=== PATIENT | female | born 1985 | race Caucasian/White ===

== ENCOUNTER 2019-05-17 07:37 | Day surgery (SDC) | payer OTHER ==
[~2019-05-17] VITALS: Ht 172.7 cm; Wt 108.9 kg
[2019-05-17] VITALS (8 sets, daily range): BP systolic 98–125; BP diastolic 55–88
[~2019-05-17 07:37] MED LIST: LR 1000ml 1,000 ML IV SCH
[2019-05-17] MEDS ORDERED: Midazolam 2mg/2ml Inj ONE (07:38)
[2019-05-17] MEDS ORDERED: fentaNYL 100 mcg/2 mL IV ONE (07:38)
--- NOTE | 2019-05-17 07:49 | Short Stay Surgery H&P ---
History of Present Illness History of Present Illness Chief Complaint Abdominal pains, GERDs, nausea HPI Staci Crockett is a 34 year old female who was admitted on for Gastro Reflux /abdominal pains/nausea Patient History Allergies: Coded Allergies: No Known Allergies (Unverified , 05/16/19) PAST MEDICAL HISTORY: (1) Diverticulosis (2) Asthma Review of Systems Cardiovascular: Reports: no symptoms Respiratory: Reports: asthma Skeletal: Reports: trauma Gastrointestinal: Reports: gastro esophageal reflux disease Genitourinary: Reports: no symptoms Neurologic: Reports: no symptoms Endocrine: Reports: no symptoms Hematologic: Reports: no symptoms Physical Exam Skin: normal HENT: normal Heart: normal Lungs: normal Abdomen: abnormal Extremities: normal Genitourinary: normal Plan Plan of Care Upper GI endoscopy and biopsy Preop Interventions None. Summary of Findings See the reports Attestation Are the patient's medical conditions optimized for surgery? Attestation Response: yes Alayna Fulton MD May 17, 2019 07:49
--- NOTE | 2019-05-17 07:50 | Pre-Procedure Note/Attestation ---
Pre-Procedure Note/Attestation Complete Prior to Procedure Planned Procedure: left Procedure Narrative: Examination of the upper GI tract via endoscope Indications for Procedure Pre-Operative Diagnosis: R/O Peptic Ulcer/gastritis/esophagitis Attestation I attest that I discussed the nature of the procedure; its benefits; risks and complications; and alternatives (and the risks and benefits of such alternatives ), prior to the procedure, with the patient (or the patient's legal guest experience representative). I attest that, if there was a reasonable possibility of needing a blood transfusion, the patient (or the patient's legal guest experience representative) was given the [facility] standardized written summary, pursuant to the [place] Blood Safety Act ([place] Health and Safety Code # 1645, as amended). I attest that I re-evaluated the patient just prior to the surgery and that there has been no change in the patient's H&P, except as documented below: Alayna Fulton MD May 17, 2019 07:50
[2019-05-17] MEDS ORDERED: LR 1000ml ONE (08:00)
[2019-05-17] MEDS ORDERED: Propofol 200mg/20ml IV ONE (08:00)
--- NOTE | 2019-05-17 08:23 | Endoscopy Procedure Note ---
Endoscopy Procedure Note General Indication for Procedure: Abdominal pains, GERDs and nausea Procedures Performed: EGD - Mild inflammatory process in gastric muscosa in antrum consistent with mild antritis, biopsied;otherwise normal upper GI, endoscopy Specimen: yes Pt Tolerated Procedure Well: Yes Estimated Blood Loss: none Anesthesia Anesthesiologist: Dr. Parson Anesthesia: moderate sedation Medications Medication Given: see anesthesia record Inserted Devices Implant(s) used?: No Quality Quality of Bowel Preparation: Excellent Was there any complications?: No GI Core Measures 50 yrs or older w/o bx or poly: Not Applicable 10yrs. F/U recommended: Not Applicable If not recommended, why?: Med reason:<3 yrs.: System Reason:<3 yrs.: Alayna Fulton MD May 17, 2019 08:23
--- NOTE | 2019-05-17 08:24 | Discharge Instructions ---
Discharge Instructions Discharge Instructions Follow up with: will send the report to Dr. Orozco For Congestive Heart Failure Reminder Report to your physician any weight gain of 5 pounds or more in one week. Alayna Fulton MD May 17, 2019 08:24
--- NOTE | 2019-05-17 08:26 | Anethesia Preoperative Eval ---
Anesthesia Pre-op PMH/ROS General Date of Evaluation: May 17, 2019 Time of Evaluation: 07:55 Anesthesiologist: Eb ASA Score: ASA 2 Mallampati Score Class I : Soft palate, uvula, fauces, pillars visible Class II: Soft palate, uvula, fauces visible Class III: Soft palate, base of uvula visible Class IV: Only hard plate visible Mallampati Classification: Class II Surgeon: Kati Diagnosis: Abdominal pain Surgical Procedure: EGD Anesthesia History: none Family History: no anesthesia problems Allergies: Coded Allergies: DOXYCYCLINE (Verified Allergy, Intermediate, stomach problem, 05/17/19) Medications: see eMAR Patient NPO?: Yes Past Medical History Cardiovascular: Reports: HTN - borderline; Denies: CAD, DC, valve dz, arrhythmia, other Pulmonary: Denies: asthma, COPD, SUZI, other Gastrointestinal/Genitourinary: Reports: GERD; Denies: CRI, ESRD, other Neurologic/Psychiatric: Reports: depression/anxiety; Denies: dementia, CVA, TIA, other Endocrine: Denies: DM, hypothyroidism, steroids, other HEENT: Denies: cataract (L), cataract (R), glaucoma, [place] (L), [place] (R), other Hematology/Immune: Denies: anemia, DVT, bleeding disorder, other Musculoskeletal/Integumentary: Denies: OA, RA, DJD, DDD, edema, other Other: obesity PMH Narrative: as above PSxH Narrative: ovarian cyst Anesthesia Pre-op Phys. Exam Physician Exam Last Vital Signs Date Time Temp Pulse Resp B/P (MAP) Pulse Ox O2 Delivery O2 Flow Rate FiO2 05/17/19 07:50 98.5 94 18 125/88 99 Room Air Constitutional: NAD Neurologic: CN 2-12 intact Cardiovascular: RRR, no M/R/G Respiratory: CTA Gastrointestinal: other - obesity Airway Exam Mallampati Score: Class II MO: full Neck: short ROM: full Teeth: intact Dentures: no upper, no lower Anesthesia Pre-op A/P Labs Urine Test Test 05/17/19 07:45 Urine HCG, Qualitative Negative (NEGATIVE) Risk Assessment & Plan Assessment: ASA 2 Plan: MAC Status Change Before Surgery: No Blas Parson MD May 17, 2019 08:26
[2019-05-17] MEDS ORDERED: LR 1000ml 1,000 ML IVLG SCH (08:34)
--- NOTE | 2019-05-17 08:37 | Immediate Post-Op Evaluation ---
Immediate Post-Op Evalulation Immediate Post-Op Evalulation Procedure: EGD with Bx Date of Evaluation: May 17, 2019 Time of Evaluation: 08:36 IV Fluids: 400 Blood Products: none Estimated Blood Loss: min Urinary Output: none Blood Pressure Systolic: 107 Blood Pressure Diastolic: 58 Pulse Rate: 84 Respiratory Rate: 20 O2 Sat by Pulse Oximetry: 99 Temperature (Fahrenheit): 97.8 Pain Score (1-10): 1 Nausea: No Vomiting: No Complications none Patient Status: reacts, patent, none Hydration Status: adequate Blas Parson MD May 17, 2019 08:36
[2019-05-17] MEDS ORDERED: fentaNYL 100 mcg/2 mL IV PRN (08:45)
[2019-05-17] MEDS ORDERED: BUPROPION XL300 MG ORAL (08:45)
[2019-05-17] MEDS ORDERED: PRILOSEC OTC20 MG ORAL (08:46)
[2019-05-17] MEDS ORDERED: ZOLOFT25 MG ORAL (08:47)
[2019-05-17] MEDS ORDERED: LAMICTAL150 MG ORAL (08:48)
[2019-05-17] MEDS ORDERED: ZYRTEC10 MG ORAL (08:48)
--- NOTE | 2019-05-17 09:33 | 48 Hour Post Anesthesia Eval ---
Post Anesthesia Evaluation Procedure: EGD with Bx Date of Evaluation: May 17, 2019 Time of Evaluation: 09:31 Blood Pressure Systolic: 104 0: 56 Pulse Rate: 72 Respiratory Rate: 20 Temperature (Fahrenheit): 97.8 O2 Sat by Pulse Oximetry: 98 Airway: patent Nausea: No Vomiting: No Pain Intensity: 1 Hydration Status: adequate Cardiopulmonary Status: stable Mental Status/LOC: patient returned to baseline Follow-up Care/Observations: n/a Post-Anesthesia Complications: none Follow-up care needed: ready to discharge Blas Parson MD May 17, 2019 09:33
--- NOTE | 2019-05-17 10:15 | Operative Note - Dictated ---
DATE OF OPERATION: 05/17/2019 SURGEON: Alayna Fulton M.D. PROCEDURE: Esophagogastroduodenoscopy with biopsy. PREOPERATIVE DIAGNOSES: Abdominal pain, nausea, gastroesophageal reflux symptoms, rule out peptic ulcer disease, gastritis, esophagitis. POSTOPERATIVE DIAGNOSIS: Mild inflammatory process in the antrum consistent with mild antritis. Biopsy was taken from the antral area. Otherwise, normal upper GI endoscopy. MEDICATION USED: Per Dr. Parson, anesthesiologist. INSTRUMENT: GIF Olympus upper GI video endoscope. DESCRIPTION OF PROCEDURE: The patient after arriving in the endoscopy unit, was told about risks and benefits of the procedure, which she accepted and signed informed consent. At this time, she was put on the left lateral decubitus position. After adequate IV sedation, the scope was gently passed through the cricopharyngeal area, was lodged into the upper esophagus, and gradually advanced towards gastroesophageal junction. The entire length of the esophagus looked normal and no abnormality was found. GE junction also likewise normal without any evidence of St's or hiatal hernia. At this time, the scope was gradually advanced into the stomach. Gastric cavity was distended with insufflation of air. The areas of the fundus and the body and the antrum were examined, which revealed basically normal mucosa in the upper part of the stomach, but upon arriving over the antral area, there was evidence of linear erythematous process consistent with mild gastritis. There was no evidence of ulcers, tumors, polyps, bleeding sites etc. There was minimal edema of the pyloric channel at the 11 o'clock also. But there was no any obstructive lesion in this area. One random biopsy from the antral area was obtained and subsequently scope was passed to the first and second portion of duodenum, which revealed completely normal. At this time, the scope was pulled back into the stomach. A retroflexion maneuver was applied. The area of the gastroesophageal junction was examined in a retrograde fashion, which revealed completely normal findings. At this point, the scope was pulled out and procedure was terminated. The patient tolerated the procedure well, left the endoscopy room in a good condition. Alayna Fulton M.D. DR: HECTOR JOB#: [id number] CC:
--- NOTE | 2019-05-17 10:15 | Pre-op HX & Phy Repo 2 SIG ---
DATE OF ADMISSION: 05/17/2019 HISTORY OF PRESENT ILLNESS: The patient is a 34-year-old female who is being seen prior to undergoing the procedure of upper GI endoscopy for which she has been scheduled to receive for evaluation of her gastrointestinal conditions. Basically, the pain that she has been suffering over the upper part of the abdomen is associated with reflux symptoms. The patient was seen in the office a few weeks ago while she was also complaining of the same condition of experiencing pain over the upper part of the abdomen. She stated at this point that she also does have symptoms of gastroesophageal reflux, which at times quite cumbersome. 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 She reported also she landed on her head as well, but she did not get unconscious at that point. Subsequently, she received prior proper treatment for her conditions and was started on multiple medications including nonsteroidal anti-inflammatory agents subsequent to which she started to have abdominal symptoms that I mentioned. At this point, she also reports to me that she does have some nausea, but no difficulty swallowing. There has been no history of hematemesis, melena, or hematochezia. There has been no history of major changes in bowel movements, except occasional diarrhea. The patient at this time also denies having any chest pain or shortness of breath. She reported to me that she has been taking PPI such as Prilosec for the problem of gastroesophageal reflux that she suffers from. As I mentioned, she has been treated with multiple NSAID medications such as ibuprofen and naproxen in the past, which she is currently also taking. PAST MEDICAL HISTORY: The patient has had history of asthma, irritable bowel syndrome, and diverticulosis. PAST SURGICAL HISTORY: She reported to me that she has had surgeries for removal of a cyst over the wrist area. Also, cysts which were in front and back of the neck. ALLERGIES: To doxycycline. CHILDHOOD DISEASE: Nonsignificant. HABITS: The patient occasionally drinks vodka during the week, but does not smoke cigarettes and does not use illicit drugs. REVIEW OF SYSTEMS: HEENT: Applicant denies any headaches or dizziness. PULMONARY: She denies having any shortness of breath or chest pain. CARDIOVASCULAR: Nonsignificant. She denies having any palpitation, angina, or dysrhythmias, etc. UROLOGICAL: She denies having any dysuria, pyuria, or hematuria, etc. NEUROLOGICAL: Nonsignificant. PHYSICAL EXAMINATION: GENERAL: At this time reveals alert and well oriented, very pleasant female, who does not seem to be in any acute distress. She looks excessively obese, but she responds to the questions quite properly. VITAL SIGNS: Blood pressure 125/88, respiratory rate 18, pulse rate 94 per minute, oxygen saturation is 99%, and temperature 98.5. HEENT: Normocephalic. Pupils equal in size and reactive to light and accommodation. No visible jaundice. Buccal cavity, tongue midline, well hydrated. No ulcers. NECK: Supple. No JVD, thyromegaly, or adenopathy. CHEST: Clear to auscultation and percussion. No rales or rhonchi. HEART: S1, S2 normal. Regular rhythm. No gallops or murmur. ABDOMEN: Soft, but obese. There are areas of tenderness over upper part of the abdomen, but no palpable mass noted at this time. Bowel sounds are present. EXTREMITIES: Unremarkable. INITIAL PREOPERATIVE HISTORY AND PHYSICAL IMPRESSION: 1. Abdominal pain, epigastric pain, possibly consistent with gastroesophageal acid reflux, gastroesophageal reflux disease, rule out esophagitis, gastritis, peptic ulcer disease, duodenitis, etc. 2. History of diverticulosis. 3. History of asthma. 4. Obesity. RECOMMENDATION: The applicant at this time seems to be stable to undergo the procedure of upper GI endoscopy for which she has been scheduled. She understands the risks and benefits and will sign the consent. Said Lisette Fulton DR: LUIS JOB#: [id number] CC:
== END 2019-05-17 10:15 | disposition home or self-care (01) ==
LOC: GAS 07:37
DX: R10.9 Unspecified abdominal pain (principal); R11.0 Nausea; K29.50 Unspecified chronic gastritis without bleeding; K57.90 Diverticulosis of intestine, part unspecified, without perforation or abscess without bleeding; E66.9 Obesity, unspecified; K21.9 Gastro-esophageal reflux disease without esophagitis; Z88.8 Allergy status to other drugs, medicaments and biological substances; I10 Essential (primary) hypertension; F32.9 Major depressive disorder, single episode, unspecified; F41.9 Anxiety disorder, unspecified; Z68.36 Body mass index [BMI] 36.0-36.9, adult
CPT/HCPCS: 43239; 81025; J2250; J2704; J3010; 94003; 94150